=== PATIENT | female | born 1990 | race Two or more races ===

== ENCOUNTER → 2017-07-11 | Outpatient (CLI) | payer OTHER ==
[~2017-07-11] MED LIST: DOCUSATE SODIU100 MG PO; ENDOCET 5-3251 EACH PO; FERROUS SULFAT325 MG PO; IBUPROFEN800 MG PO; MACROBID100 MG PO; PRENATAL VITAM1 EAC1 PO; PYRIDIUM200 MG PO; TYLENOL EXTRA500 MG PO
== END | disposition home or self-care (01) ==
LOC: EKG 13:00
DX: I05.1 Rheumatic mitral insufficiency (principal); I07.1 Rheumatic tricuspid insufficiency; I27.2 Other secondary pulmonary hypertension
CPT/HCPCS: 93306

== ENCOUNTER → 2017-09-08 | Outpatient (CLI) | payer OTHER | END | disposition home or self-care (01) | LOC: NUC 13:46 | DX: I27.20 Pulmonary hypertension, unspecified (principal) | CPT/HCPCS: 71020; 78582; A9540; A9567 ==